=== PATIENT | male | born 1985 | race Caucasian/White ===

== ENCOUNTER 2022-03-07 09:11 | Emergency (ER) | payer MEDICAID ==
[~2022-03-07 09:11] MED LIST: FOLI1TAB27 PO; GABA-532 PO; LORA-269 PO; MULT-1179 PO; OMEP40CA21 PO; ONDA4TAB12 PO; ONDA4TAB6 PO; PANT20TA2 PO; THI100T PO
== END 2022-03-07 10:07 | disposition left against medical advice (07) ==
LOC: ER 09:12
DX: Z53.21 Procedure and treatment not carried out due to patient leaving prior to being seen by health care provider

== ENCOUNTER 2022-07-05 08:50 | Emergency (ER) | payer MEDICAID ==
[~2022-07-05] VITALS: Ht 182.9 cm; Wt 81.8 kg
[2022-07-05] MEDS ORDERED: normal saline 1000ML IV soln IVB ONE ×2 (10:50→11:30)
[2022-07-05] MEDS ORDERED: ondansetron/PF 4mg/2ml inj IV ONE (10:50)
[2022-07-05] MEDS ORDERED: LORazepam 2 mg/ml vial IV ONE (10:50)
[2022-07-05 11:01] LABS: BASOPHILS % (AUTO) 0.3 % (0-1); EOSINOPHILS % (AUTO) 0.3 % (0-6); HEMATOCRIT 43.1 % (42.0-52.0); HEMOGLOBIN 14.8 g/dl (14.0-17.9); LYMPHOCYTES # (AUTO) 0.6 X10'3 (1.1-4.8); LYMPHOCYTES % (AUTO) 9.2 % (21-51); MEAN CORPUSCULAR HEMOGLOBIN 34.5 PG (27.0-31.0); MEAN CORPUSCULAR HGB CONC 34.3 g/dL (33.0-36.5); MEAN CORPUSCULAR VOLUME 100.5 FL (78-98); MEAN PLATELET VOLUME 7.9 FL (7.4-10.4); MONOCYTES # (AUTO) 0.7 X10'3 (0-0.9); MONOCYTES % (AUTO) 10.8 % (2-12); NEUTROPHILS # (AUTO) 5.1 X10'3 (1.8-7.7); NEUTROPHILS % (AUTO) 79.4 % (42-75); PLATELET COUNT 84 X10'3 (140-440); RED BLOOD COUNT 4.29 X10'6 (4.70-6.10); RED CELL DISTRIBUTION WIDTH 13.9 % (11.5-14.5); WHITE BLOOD COUNT 6.5 X10'3 (4.5-11.0)
[2022-07-05 11:15] LABS: ALANINE AMINOTRANSFERASE 395 U/L (12-78); ALBUMIN 4.9 G/DL (3.4-5.0); ALBUMIN/GLOBULIN RATIO 1.3 (1.1-1.5); ALKALINE PHOSPHATASE 154 IU/L (46-116); ANION GAP 17 (8-16); ASPARTATE AMINO TRANSFERASE 343 U/L (10-37); BILIRUBIN,TOTAL 1.3 MG/DL (0.1-1.0); BLOOD UREA NITROGEN 12 MG/DL (7-18); BUN/CREATININE RATIO 18.2 (5.4-32.0); CALCIUM 10.6 MG/DL (8.5-10.1); CHLORIDE 91 MMOL/L (99-107); CREATININE 0.66 MG/DL (0.60-1.10); GLUCOSE 125 MG/DL (70-104); MAGNESIUM 1.6 MG/DL (1.5-2.4); POTASSIUM 3.6 MMOL/L (3.5-5.1); SODIUM 136 MMOL/L (135-145); TOTAL CARBON DIOXIDE 27.9 MMOL/L (24-32); TOTAL PROTEIN 8.7 G/DL (6.4-8.2); eGFR > 90 ML/MIN
[2022-07-05 11:46] VITALS: BP 134/86
[2022-07-05] MEDS ORDERED: ONDA-103 PO (12:23)
[2022-07-05] MEDS ORDERED: GABA300C PO (12:23)
== END 2022-07-05 13:49 | disposition home or self-care (01) ==
LOC: ER 08:51
DX: F10.10 Alcohol abuse, uncomplicated (principal); R11.2 Nausea with vomiting, unspecified; R74.8 Abnormal levels of other serum enzymes; F41.9 Anxiety disorder, unspecified; F32.9 Major depressive disorder, single episode, unspecified; F12.90 Cannabis use, unspecified, uncomplicated; Z90.49 Acquired absence of other specified parts of digestive tract; Z72.89 Other problems related to lifestyle; Z79.899 Other long term (current) drug therapy; Y90.9 Presence of alcohol in blood, level not specified
CPT/HCPCS: 80053; 83735; 85025; 96361; 96374; 96375; 99284; J2060; J2405; J7030

== ENCOUNTER 2022-09-09 07:12 | Inpatient (IN) | payer MEDICAID ==
[~2022-09-09] VITALS: Ht 182.9 cm; Wt 81.8 kg
[~2022-09-09 07:12] MED LIST changes: +GABA300C PO; +ONDA-103 PO
[2022-09-09] MEDS ORDERED: normal saline 1000ml 1,000 ML IV ONE (07:30)
[2022-09-09] MEDS ORDERED: ondansetron/PF 4mg/2ml inj IV ONE (07:30)
[2022-09-09] MEDS ORDERED: pantoprazole 40mg IV 40 MG in normal saline 100ml IV soln 100 ML IV ONE (07:30)
[2022-09-09] MEDS ORDERED: pantoprazole 40MG/NS 100ML BAG 100 ML IV ONE (07:45)
[2022-09-09] MEDS ORDERED: multivitamins, therapeutics tablet PO SCH (08:00)
[2022-09-09] MEDS: LORazepam 2 mg/ml vial IV PRN ×7 (08:08→21:00)
[2022-09-09] MEDS: thiamine 100mg/ml 2ml inj. IV SCH ×3 (08:24→20:59)
--- NOTE | 2022-09-09 08:30 | NUR ---
Patient sleepy, no tremors seen since the Ativan IV was given.
[2022-09-09 10:02] LABS: LIPASE 278 U/L (73-393)
[2022-09-09] MEDS: folic acid 1mg/0.2ml inj IV SCH (10:16)
[2022-09-09 10:25] LABS: ALANINE AMINOTRANSFERASE 206 U/L (12-78); ALBUMIN 3.8 G/DL (3.4-5.0); ALBUMIN/GLOBULIN RATIO 1.1 (1.1-1.5); ALKALINE PHOSPHATASE 191 IU/L (46-116); ANION GAP 15 (8-16); BILIRUBIN,TOTAL 0.5 MG/DL (0.1-1.0); BLOOD UREA NITROGEN 6 MG/DL (7-18); BUN/CREATININE RATIO 14.3 (10.0-20.0); CALCIUM 8.5 MG/DL (8.5-10.1); CHLORIDE 103 MMOL/L (99-107); CREATININE 0.42 MG/DL (0.60-1.10); GLUCOSE 118 MG/DL (70-104); SODIUM 140 MMOL/L (135-145); TOTAL CARBON DIOXIDE 21.8 MMOL/L (24-32); TOTAL PROTEIN 7.4 G/DL (6.4-8.2); eGFR > 90 ML/MIN
[2022-09-09 10:32] LABS: ASPARTATE AMINO TRANSFERASE 235 U/L (10-37); PHOSPHORUS 2.2 MG/DL (2.3-4.5); POTASSIUM 3.9 MMOL/L (3.5-5.1)
[2022-09-09] MEDS ORDERED: buprenorphine/naloxone 8MG-2MG SUBlingual film SL STA (10:34)
[2022-09-09] MEDS ORDERED: multivitamins, therapeutics tablet PO ONE (10:45)
[2022-09-09 11:17] LABS: BASOPHILS % (AUTO) 0.6 % (0-1); EOSINOPHILS # (AUTO) 0.1 X10'3 (0-0.9); HEMATOCRIT 39.9 % (42.0-52.0); HEMOGLOBIN 13.5 g/dl (14.0-17.9); LYMPHOCYTES # (AUTO) 0.7 X10'3 (1.1-4.8); LYMPHOCYTES % (AUTO) 18.1 % (21-51); MEAN CORPUSCULAR HGB CONC 33.7 g/dL (33.0-36.5); MEAN CORPUSCULAR VOLUME 100.9 FL (78-98); MONOCYTES # (AUTO) 0.6 X10'3 (0-0.9); MONOCYTES % (AUTO) 14.5 % (2-12); NEUTROPHILS # (AUTO) 2.6 X10'3 (1.8-7.7); NEUTROPHILS % (AUTO) 64.8 % (42-75); PLATELET COUNT 102 X10'3 (140-440); RED BLOOD COUNT 3.96 X10'6 (4.70-6.10); RED CELL DISTRIBUTION WIDTH 14.2 % (11.5-14.5)
--- NOTE | 2022-09-09 12:42 | NUR ---
MD STEWART AT BEDSIDE
[2022-09-09] MEDS ORDERED: potassium Cl 40MEQ/1/2NS 520ml 520 ML IV PRN (12:50)
[2022-09-09] MEDS ORDERED: magnesium Cl slow-release 64mg tablet PO PRN (12:50)
[2022-09-09] MEDS: normal saline 1000ml 1,000 ML IV SCH ×2 (12:50→22:50)
[2022-09-09] MEDS ORDERED: magnesium 2GM in 50ml NS 50 ML IV PRN (12:50)
[2022-09-09] MEDS ORDERED: acetaminophen 325mg tablet PO PRN (12:50)
[2022-09-09] MEDS ORDERED: magnesium 4gm in 100ml NS 100 ML IV PRN (12:50)
[2022-09-09] MEDS ORDERED: potassium Cl 20 mEq SR tablet PO PRN (12:50)
[2022-09-09] MEDS ORDERED: FOLI1TAB27 PO (14:32)
[2022-09-09] MEDS ORDERED: DULO60CA65 PO (14:32)
[2022-09-09] MEDS ORDERED: BUPR1FIL20 PO (14:32)
--- NOTE | 2022-09-09 15:25 | NUR ---
Current peripheral IV got occluded, multiple IV insertion attempts. Pt need Ativan as soon as a new peripheral IV placed.
--- NOTE | 2022-09-09 15:57 | NUR ---
Patient arrived to unit via gurney. Received report from Bharath TYSON.
[2022-09-09 16:07] VITALS: BP 146/94
--- NOTE | 2022-09-09 17:21 | NUR ---
PAGER ID: [phone] MESSAGE: [phone] Daniel Complaining of 8/10 back pain. he doesn't have anything for pain. Thank you Romina HUERTA [phone]
--- NOTE | 2022-09-09 18:16 | NUR ---
Problems reprioritized. Patient report given, questions answered & plan of care reviewed with Sherri TYSON.
--- NOTE | 2022-09-09 18:30 | NUR ---
Reviewed and agree with assessments done by Romina HUERTA.
[2022-09-09] MEDS: K and/or MAG REPLACEMENT MC SCH (20:00)
[2022-09-09 20:04] LABS: CLARITY,URINE CLEAR (Clear); COLOR,URINE YELLOW (Yellow); GLUCOSE, URINE NEGATIVE (Neg); KETONES,URINE 15 mg/dl (Neg); LEUKOCYTE ESTERASE ,URINE NEGATIVE (Neg); NITRITES, URINE NEGATIVE (Neg); OCCULT BLOOD,URINE NEGATIVE (Neg); PROTEIN,URINE NEGATIVE (Neg); UROBILINOGEN,URINE 0.2 E.U/dL (0.2-1.0)
[2022-09-09 20:06] LABS: UA COLLECTION TYPE NON-SPECIFIED
[2022-09-09 20:28] LABS: URINE AMPHETAMINE SCREEN NEGATIVE (Neg); URINE BARBITUATE SCREEN NEGATIVE (Neg); URINE BENZODIAZEPINES SCREEN NEGATIVE (Neg); URINE CANNABINOID SCREEN NEGATIVE (Neg); URINE COCAINE SCREEN NEGATIVE (Neg); URINE METHADONE SCREEN NEGATIVE (Neg); URINE OPIATE SCREEN NEGATIVE (Neg); URINE PHENCYCLIDINE SCREEN NEGATIVE (Neg)
[2022-09-09] MEDS: buprenorphine/naloxone 8MG-2MG SUBlingual film SL SCH (21:02)
[2022-09-09 22:00] VITALS: BP 145/101
[2022-09-10] MEDS: LORazepam 2 mg/ml vial IV PRN ×7 (01:42→23:19)
[2022-09-10 02:00] VITALS: BP 145/99
[2022-09-10] MEDS: normal saline 1000ml 1,000 ML IV SCH ×2 (05:16→18:50)
--- NOTE | 2022-09-10 06:09 | NUR ---
Problems reprioritized. Patient report given, questions answered & plan of care reviewed with CHARITY RN.
[2022-09-10 07:00] VITALS: BP 141/99
[2022-09-10 07:37] LABS: BASOPHILS % (AUTO) 0.7 % (0-1); EOSINOPHILS # (AUTO) 0.1 X10'3 (0-0.9); EOSINOPHILS % (AUTO) 3.4 % (0-6); HEMOGLOBIN 13.5 g/dl (14.0-17.9); LYMPHOCYTES # (AUTO) 0.9 X10'3 (1.1-4.8); LYMPHOCYTES % (AUTO) 20.8 % (21-51); MEAN CORPUSCULAR HEMOGLOBIN 34.5 PG (27.0-31.0); MEAN CORPUSCULAR HGB CONC 34.6 g/dL (33.0-36.5); MEAN CORPUSCULAR VOLUME 99.8 FL (78-98); MONOCYTES # (AUTO) 0.6 X10'3 (0-0.9); MONOCYTES % (AUTO) 13.3 % (2-12); NEUTROPHILS # (AUTO) 2.6 X10'3 (1.8-7.7); NEUTROPHILS % (AUTO) 61.8 % (42-75); PLATELET COUNT 92 X10'3 (140-440); RED BLOOD COUNT 3.91 X10'6 (4.70-6.10); RED CELL DISTRIBUTION WIDTH 13.9 % (11.5-14.5); WHITE BLOOD COUNT 4.2 X10'3 (4.5-11.0)
[2022-09-10 07:51] LABS: ALANINE AMINOTRANSFERASE 174 U/L (12-78); ALBUMIN 3.8 G/DL (3.4-5.0); ALKALINE PHOSPHATASE 162 IU/L (46-116); AMYLASE 61 U/L (25-115); ANION GAP 11 (8-16); ASPARTATE AMINO TRANSFERASE 158 U/L (10-37); BILIRUBIN,TOTAL 0.9 MG/DL (0.1-1.0); BLOOD UREA NITROGEN 5 MG/DL (7-18); BUN/CREATININE RATIO 10.9 (10.0-20.0); CALCIUM 9.4 MG/DL (8.5-10.1); CHLORIDE 101 MMOL/L (99-107); CREATININE 0.46 MG/DL (0.60-1.10); GLUCOSE 111 MG/DL (70-104); LIPASE 574 U/L (73-393); MAGNESIUM 1.5 MG/DL (1.5-2.4); PHOSPHORUS 3.3 MG/DL (2.3-4.5); POTASSIUM 3.4 MMOL/L (3.5-5.1); SODIUM 137 MMOL/L (135-145); TOTAL CARBON DIOXIDE 24.7 MMOL/L (24-32); TOTAL PROTEIN 7.5 G/DL (6.4-8.2); eGFR > 90 ML/MIN
[2022-09-10] MEDS: K and/or MAG REPLACEMENT MC SCH ×2 (08:00→19:57)
[2022-09-10] MEDS: folic acid 1mg/0.2ml inj IV SCH (08:18)
[2022-09-10] MEDS: thiamine 100mg/ml 2ml inj. IV SCH ×3 (08:19→21:13)
[2022-09-10] MEDS: duloxetine 30mg CAPSULE.DR PO SCH (08:21)
[2022-09-10] MEDS: potassium Cl 20 mEq SR tablet PO PRN ×3 (08:21→15:47)
[2022-09-10] MEDS: buprenorphine/naloxone 8MG-2MG SUBlingual film SL SCH ×2 (08:22→19:55)
--- NOTE | 2022-09-10 10:25 | NUR ---
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
[2022-09-10 11:00] VITALS: BP 141/99
--- NOTE | 2022-09-10 13:35 | NUR ---
Malnutrition consult: Pt reports 2-13 lb wt loss with decreased appetite per malnutrition risk screen with RN. Attempted visit with pt at bedside however pt sleeping. During brief visit no visible fat or muscle wasting was appreciated. Pt with documented wt h/o 81.82 kg 07/05/22 though no documentation of how wt was obtained, current scaled wt is 81.82 kg. Pt on a regular diet and eating poorly, documented with average 31% PO intake of first two meals, possibly r/t EtOH w/d. IF PO intake does not improve pt would benefit from ONS to assist with meeting estimated nutrient needs. Pt with no documented significant decrease in muscle strength or edema. Pt currently lacks a minimum of two criteria for malnutrition though at a high risk in view of EtOH hx. Will continue to follow and further monitor qualifying malnutrition criteria. Addendum: 09/10/22 at [address] Amended: Links added.
--- NOTE | 2022-09-10 13:45 | NUR ---
i HAVE REVIEWED AND AGREE WITH ASSESSMENTS BY CHARITY HUERTA
[2022-09-10 15:00] VITALS: BP 154/111
--- NOTE | 2022-09-10 16:31 | NUR ---
Page sent to at approx [phone] [id number], Lamar Sanchez, requesting nicotine patch, please advise. Genia Whiting @[phone].
[2022-09-10 18:00] VITALS: BP 151/97
[2022-09-10 22:00] VITALS: BP 149/96
[2022-09-11] MEDS: LORazepam 2 mg/ml vial IV PRN ×3 (01:58→06:53)
[2022-09-11 02:00] VITALS: BP 151/96
[2022-09-11] MEDS: normal saline 1000ml 1,000 ML IV SCH ×3 (03:34→21:15)
[2022-09-11 06:00] VITALS: BP 149/102
--- NOTE | 2022-09-11 06:15 | NUR ---
Patient in room PCU 3008. I have received report from Luzmaria TYSON and had the opportunity to ask questions and assume patient care. Pt sleeping, No distress. Call light in reach. Addendum: 09/11/22 at 0703 by Leslye Jamil RN Amended: Links added.
--- NOTE | 2022-09-11 06:32 | NUR ---
Problems reprioritized. Patient report given, questions answered & plan of care reviewed with Hanny TYSON.
[2022-09-11] MEDS: pantoprazole 40mg Tablet.DR PO SCH (06:53)
[2022-09-11] MEDS: thiamine 100mg/ml 2ml inj. IV SCH ×3 (07:29→20:21)
[2022-09-11] MEDS: duloxetine 30mg CAPSULE.DR PO SCH (07:29)
[2022-09-11] MEDS: buprenorphine/naloxone 8MG-2MG SUBlingual film SL SCH ×2 (07:29→19:33)
[2022-09-11 07:45] LABS: BASOPHILS % (AUTO) 0.5 % (0-1); EOSINOPHILS # (AUTO) 0.2 X10'3 (0-0.9); EOSINOPHILS % (AUTO) 4.5 % (0-6); HEMATOCRIT 38.5 % (42.0-52.0); HEMOGLOBIN 13.3 g/dl (14.0-17.9); LYMPHOCYTES # (AUTO) 1.1 X10'3 (1.1-4.8); LYMPHOCYTES % (AUTO) 21.8 % (21-51); MEAN CORPUSCULAR HEMOGLOBIN 34.4 PG (27.0-31.0); MEAN CORPUSCULAR HGB CONC 34.5 g/dL (33.0-36.5); MEAN CORPUSCULAR VOLUME 99.8 FL (78-98); MEAN PLATELET VOLUME 8.4 FL (7.4-10.4); MONOCYTES # (AUTO) 0.6 X10'3 (0-0.9); MONOCYTES % (AUTO) 11.9 % (2-12); NEUTROPHILS % (AUTO) 61.3 % (42-75); PLATELET COUNT 114 X10'3 (140-440); RED BLOOD COUNT 3.86 X10'6 (4.70-6.10); RED CELL DISTRIBUTION WIDTH 13.7 % (11.5-14.5); WHITE BLOOD COUNT 4.9 X10'3 (4.5-11.0)
[2022-09-11] MEDS: K and/or MAG REPLACEMENT MC SCH ×2 (08:00→19:06)
--- NOTE | 2022-09-11 08:18 | NUR ---
PAGER ID: [phone] MESSAGE: [phone] Pt on ETOH protocol meds ? Ativan has dropped off eMAR. #[id number] Leslye
[2022-09-11 08:52] LABS: ALANINE AMINOTRANSFERASE 156 U/L (12-78); ALBUMIN 3.8 G/DL (3.4-5.0); ALKALINE PHOSPHATASE 153 IU/L (46-116); AMYLASE 70 U/L (25-115); ANION GAP 13 (8-16); ASPARTATE AMINO TRANSFERASE 116 U/L (10-37); BILIRUBIN,TOTAL 0.8 MG/DL (0.1-1.0); BLOOD UREA NITROGEN 7 MG/DL (7-18); BUN/CREATININE RATIO 15.9 (10.0-20.0); CALCIUM 10.1 MG/DL (8.5-10.1); CHLORIDE 101 MMOL/L (99-107); CREATININE 0.44 MG/DL (0.60-1.10); GLUCOSE 99 MG/DL (70-104); MAGNESIUM 1.5 MG/DL (1.5-2.4); PHOSPHORUS 4.7 MG/DL (2.3-4.5); POTASSIUM 4.1 MMOL/L (3.5-5.1); SODIUM 136 MMOL/L (135-145); TOTAL CARBON DIOXIDE 22.5 MMOL/L (24-32); TOTAL PROTEIN 7.7 G/DL (6.4-8.2); eGFR > 90 ML/MIN
--- NOTE | 2022-09-11 08:58 | NUR ---
PAGER ID: [phone] MESSAGE: [phone] Daniel. Pt is having tremors. He is requesting Ativan. I do not have an order. Leslye #[phone]
[2022-09-11] MEDS ORDERED: haloperidol 5mg tablet PO PRN (09:00)
[2022-09-11] MEDS ORDERED: LORazepam 2 mg/ml vial IV PRN (09:00)
[2022-09-11] MEDS: LORazepam 1 MG tablet PO PRN ×5 (09:28→22:39)
[2022-09-11] MEDS: folic acid 1mg/0.2ml inj IV SCH (09:28)
[2022-09-11 11:27] VITALS: BP 143/106
[2022-09-11] MEDS: chlordiazePOXIDE 25mg capsule PO PRN (14:27)
[2022-09-11] MEDS: ondansetron/PF 4mg/2ml inj IV PRN (14:29)
[2022-09-11 14:40] VITALS: BP 141/107
--- NOTE | 2022-09-11 18:11 | NUR ---
Problems reprioritized. Patient report given, questions answered & plan of care reviewed with Stephen TYSON. Pt eating dinner. Call light in reach. Addendum: 09/11/22 at 1812 by Leslye Jamil RN Amended: Links added.
[2022-09-11 19:32] VITALS: BP 149/90
[2022-09-11 22:35] VITALS: BP 151/93
[2022-09-12 03:00] VITALS: BP 145/105
[2022-09-12] MEDS: LORazepam 1 MG tablet PO PRN ×7 (03:57→22:25)
[2022-09-12] MEDS: chlordiazePOXIDE 25mg capsule PO PRN ×4 (03:57→22:25)
[2022-09-12 06:00] VITALS: BP 145/102
--- NOTE | 2022-09-12 06:15 | NUR ---
Patient in room PCU 3008. I have received report from Stephen TYSON and had the opportunity to ask questions and assume patient care. Pt resting, no distress. Call light in reach. Addendum: 09/12/22 at 0616 by Leslye Jamil RN Amended: Links added.
[2022-09-12 06:59] LABS: BASOPHILS % (AUTO) 0.7 % (0-1); EOSINOPHILS # (AUTO) 0.2 X10'3 (0-0.9); EOSINOPHILS % (AUTO) 3.4 % (0-6); HEMATOCRIT 37.4 % (42.0-52.0); LYMPHOCYTES # (AUTO) 1.2 X10'3 (1.1-4.8); LYMPHOCYTES % (AUTO) 19.8 % (21-51); MEAN CORPUSCULAR HEMOGLOBIN 34.5 PG (27.0-31.0); MEAN CORPUSCULAR HGB CONC 34.6 g/dL (33.0-36.5); MEAN CORPUSCULAR VOLUME 99.6 FL (78-98); MEAN PLATELET VOLUME 8.2 FL (7.4-10.4); MONOCYTES # (AUTO) 0.7 X10'3 (0-0.9); MONOCYTES % (AUTO) 11.5 % (2-12); NEUTROPHILS # (AUTO) 3.8 X10'3 (1.8-7.7); NEUTROPHILS % (AUTO) 64.6 % (42-75); PLATELET COUNT 129 X10'3 (140-440); RED BLOOD COUNT 3.76 X10'6 (4.70-6.10); RED CELL DISTRIBUTION WIDTH 13.8 % (11.5-14.5); WHITE BLOOD COUNT 5.8 X10'3 (4.5-11.0)
[2022-09-12 07:17] LABS: ALANINE AMINOTRANSFERASE 138 U/L (12-78); ALBUMIN 3.8 G/DL (3.4-5.0); ALKALINE PHOSPHATASE 146 IU/L (46-116); AMYLASE 54 U/L (25-115); ANION GAP 12 (8-16); ASPARTATE AMINO TRANSFERASE 102 U/L (10-37); BILIRUBIN,TOTAL 0.7 MG/DL (0.1-1.0); BLOOD UREA NITROGEN 9 MG/DL (7-18); BUN/CREATININE RATIO 19.6 (10.0-20.0); CALCIUM 9.7 MG/DL (8.5-10.1); CHLORIDE 99 MMOL/L (99-107); CREATININE 0.46 MG/DL (0.60-1.10); GLUCOSE 100 MG/DL (70-104); MAGNESIUM 1.6 MG/DL (1.5-2.4); PHOSPHORUS 4.6 MG/DL (2.3-4.5); SODIUM 135 MMOL/L (135-145); TOTAL CARBON DIOXIDE 23.6 MMOL/L (24-32); TOTAL PROTEIN 7.6 G/DL (6.4-8.2); eGFR > 90 ML/MIN
[2022-09-12] MEDS: duloxetine 30mg CAPSULE.DR PO SCH (07:25)
[2022-09-12] MEDS: normal saline 1000ml 1,000 ML IV SCH ×2 (07:25→16:53)
[2022-09-12] MEDS: pantoprazole 40mg Tablet.DR PO SCH (07:26)
[2022-09-12] MEDS: buprenorphine/naloxone 8MG-2MG SUBlingual film SL SCH ×2 (07:26→19:09)
[2022-09-12] MEDS: K and/or MAG REPLACEMENT MC SCH ×2 (08:00→19:07)
[2022-09-12] MEDS: ondansetron/PF 4mg/2ml inj IV PRN (09:05)
[2022-09-12 10:53] VITALS: BP 128/97
[2022-09-12] MEDS ORDERED: magnesium hydroxide 30ml (MOM) UD suspension PO ONE (14:50)
[2022-09-12 15:01] VITALS: BP 138/96
--- NOTE | 2022-09-12 17:58 | NUR ---
Problems reprioritized. Patient report given, questions answered & plan of care reviewed with Stephen TYSON. Pt playing on tablet,watching TV and eating dinner. Addendum: 09/12/22 at 1807 by Leslye Jamil RN Amended: Links added.
[2022-09-12 18:55] VITALS: BP 157/88
[2022-09-12 23:00] VITALS: BP 139/91
[2022-09-13] MEDS: LORazepam 1 MG tablet PO PRN ×7 (01:19→23:52)
[2022-09-13] MEDS: normal saline 1000ml 1,000 ML IV SCH ×3 (01:23→23:03)
[2022-09-13 01:46] VITALS: BP 128/91
[2022-09-13] MEDS: chlordiazePOXIDE 25mg capsule PO PRN ×3 (04:59→19:58)
--- NOTE | 2022-09-13 06:15 | NUR ---
Patient in room PCU 3008. I have received report from Stephen TYSON and had the opportunity to ask questions and assume patient care.RN informed me of pt paranoid behavior last noc. This behavior included needing the disabled camera in the room to be covered with tape. I interviewed my pt. He stated "I think i've been taking too much of my Suboxone". He then dumped out his little mini back pac and 7 opened envelopes and one intact of Suboxone fell out. Pt stated " I was taking 2 extra a day between what you were giving me". Pt VS WNL. Will notify Dr Lindsay and continue to monitor. Addendum: 09/13/22 at 0657 by Leslye Jamil RN Amended: Links added.
[2022-09-13 06:30] VITALS: BP 149/102
--- NOTE | 2022-09-13 07:03 | NUR ---
PAGER ID: [phone] MESSAGE: [phone] Daniel. Please call Leslye PEACE. Thank you.
[2022-09-13 07:10] LABS: BASOPHILS % (AUTO) 0.6 % (0-1); EOSINOPHILS # (AUTO) 0.2 X10'3 (0-0.9); EOSINOPHILS % (AUTO) 3.8 % (0-6); HEMATOCRIT 35.8 % (42.0-52.0); HEMOGLOBIN 12.5 g/dl (14.0-17.9); LYMPHOCYTES # (AUTO) 1.2 X10'3 (1.1-4.8); LYMPHOCYTES % (AUTO) 20.2 % (21-51); MEAN CORPUSCULAR HEMOGLOBIN 34.9 PG (27.0-31.0); MEAN CORPUSCULAR VOLUME 99.8 FL (78-98); MEAN PLATELET VOLUME 7.9 FL (7.4-10.4); MONOCYTES # (AUTO) 0.7 X10'3 (0-0.9); MONOCYTES % (AUTO) 11.9 % (2-12); NEUTROPHILS # (AUTO) 3.9 X10'3 (1.8-7.7); NEUTROPHILS % (AUTO) 63.5 % (42-75); PLATELET COUNT 147 X10'3 (140-440); RED BLOOD COUNT 3.59 X10'6 (4.70-6.10); RED CELL DISTRIBUTION WIDTH 13.5 % (11.5-14.5); WHITE BLOOD COUNT 6.2 X10'3 (4.5-11.0)
[2022-09-13 07:38] LABS: ALANINE AMINOTRANSFERASE 173 U/L (12-78); ALBUMIN 3.8 G/DL (3.4-5.0); ALKALINE PHOSPHATASE 134 IU/L (46-116); AMYLASE 35 U/L (25-115); ANION GAP 13 (8-16); ASPARTATE AMINO TRANSFERASE 143 U/L (10-37); BILIRUBIN,TOTAL 0.8 MG/DL (0.1-1.0); BLOOD UREA NITROGEN 10 MG/DL (7-18); BUN/CREATININE RATIO 18.9 (10.0-20.0); CALCIUM 9.4 MG/DL (8.5-10.1); CHLORIDE 101 MMOL/L (99-107); CREATININE 0.53 MG/DL (0.60-1.10); GLUCOSE 88 MG/DL (70-104); MAGNESIUM 1.7 MG/DL (1.5-2.4); PHOSPHORUS 4.3 MG/DL (2.3-4.5); POTASSIUM 3.9 MMOL/L (3.5-5.1); SODIUM 138 MMOL/L (135-145); TOTAL CARBON DIOXIDE 23.8 MMOL/L (24-32); TOTAL PROTEIN 7.5 G/DL (6.4-8.2); eGFR > 90 ML/MIN
[2022-09-13] MEDS: K and/or MAG REPLACEMENT MC SCH ×2 (08:00→19:49)
[2022-09-13] MEDS: buprenorphine/naloxone 8MG-2MG SUBlingual film SL SCH ×2 (08:00→19:45)
--- NOTE | 2022-09-13 08:30 | NUR ---
PAGER ID: [phone] MESSAGE: [phone] Daniel. Please call francois LANCASTER #[phone]. I need direction on med pass as Pt was taking his own Saboxone. Francois LANCASTER
[2022-09-13] MEDS: pantoprazole 40mg Tablet.DR PO SCH (08:39)
[2022-09-13] MEDS: folic acid 1mg tablet PO SCH (08:39)
[2022-09-13] MEDS: duloxetine 30mg CAPSULE.DR PO SCH (08:39)
[2022-09-13 11:00] VITALS: BP 127/87
[2022-09-13 14:46] VITALS: BP 132/85
--- NOTE | 2022-09-13 14:46 | NUR ---
poison control called back. Info exchanged. Poison control closed his case. Pt relaxing. scant tremors noted.
--- NOTE | 2022-09-13 16:57 | NUR ---
Patient report given, questions answered & plan of care reviewed with Birdie TYSON.
[2022-09-13 17:00] VITALS: BP 156/87
--- NOTE | 2022-09-13 17:26 | NUR ---
Pt and all belongings in room moved to 4021b.
--- NOTE | 2022-09-13 17:50 | NUR ---
Received pt from PCU. Pt A&Ox4, on room air, denies pain. Oriented pt to room and call light.
--- NOTE | 2022-09-13 18:08 | NUR ---
Problems reprioritized. Patient report given, questions answered & plan of care reviewed with
[2022-09-13 22:00] VITALS: BP 155/95
[2022-09-14 02:00] VITALS: BP 148/93
[2022-09-14] MEDS: LORazepam 1 MG tablet PO PRN ×2 (02:59→05:35)
--- NOTE | 2022-09-14 06:00 | NUR ---
Patient in room ORTHO 4021. I have received report from Kimberly TYSON and had the opportunity to ask questions and assume patient care.
[2022-09-14 06:17] LABS: BASOPHILS % (AUTO) 0.6 % (0-1); EOSINOPHILS # (AUTO) 0.2 X10'3 (0-0.9); EOSINOPHILS % (AUTO) 4.2 % (0-6); HEMATOCRIT 42.6 % (42.0-52.0); HEMOGLOBIN 14.7 g/dl (14.0-17.9); LYMPHOCYTES # (AUTO) 1.5 X10'3 (1.1-4.8); LYMPHOCYTES % (AUTO) 28.9 % (21-51); MEAN CORPUSCULAR HEMOGLOBIN 34.7 PG (27.0-31.0); MEAN CORPUSCULAR HGB CONC 34.5 g/dL (33.0-36.5); MEAN CORPUSCULAR VOLUME 100.4 FL (78-98); MEAN PLATELET VOLUME 7.8 FL (7.4-10.4); MONOCYTES # (AUTO) 0.7 X10'3 (0-0.9); MONOCYTES % (AUTO) 13.6 % (2-12); NEUTROPHILS # (AUTO) 2.7 X10'3 (1.8-7.7); NEUTROPHILS % (AUTO) 52.7 % (42-75); PLATELET COUNT 179 X10'3 (140-440); RED BLOOD COUNT 4.24 X10'6 (4.70-6.10); RED CELL DISTRIBUTION WIDTH 14.1 % (11.5-14.5); WHITE BLOOD COUNT 5.1 X10'3 (4.5-11.0)
[2022-09-14 06:20] LABS: ALANINE AMINOTRANSFERASE 235 U/L (12-78); ALBUMIN 4.4 G/DL (3.4-5.0); ALBUMIN/GLOBULIN RATIO 1.1 (1.1-1.5); ALKALINE PHOSPHATASE 159 IU/L (46-116); AMYLASE 33 U/L (25-115); ANION GAP 13 (8-16); ASPARTATE AMINO TRANSFERASE 169 U/L (10-37); BILIRUBIN,TOTAL 0.7 MG/DL (0.1-1.0); BLOOD UREA NITROGEN 9 MG/DL (7-18); BUN/CREATININE RATIO 16.7 (10.0-20.0); CALCIUM 9.5 MG/DL (8.5-10.1); CHLORIDE 103 MMOL/L (99-107); CREATININE 0.54 MG/DL (0.60-1.10); GLUCOSE 112 MG/DL (70-104); MAGNESIUM 2.1 MG/DL (1.5-2.4); PHOSPHORUS 4.4 MG/DL (2.3-4.5); POTASSIUM 3.9 MMOL/L (3.5-5.1); SODIUM 141 MMOL/L (135-145); TOTAL CARBON DIOXIDE 25.5 MMOL/L (24-32); TOTAL PROTEIN 8.3 G/DL (6.4-8.2); eGFR > 90 ML/MIN
--- NOTE | 2022-09-14 06:23 | NUR ---
Problems reprioritized. Patient report given, questions answered & plan of care reviewed with Claudette TYSON. Addendum: 09/14/22 at 0625 by Kimberly Miller RN Problems reprioritized. Patient report given, questions answered & plan of care reviewed with Maribel TYSON.
[2022-09-14 06:37] VITALS: BP 121/67
[2022-09-14] MEDS: K and/or MAG REPLACEMENT MC SCH (07:30)
[2022-09-14] MEDS: pantoprazole 40mg Tablet.DR PO SCH (07:44)
[2022-09-14] MEDS: folic acid 1mg tablet PO SCH (07:44)
[2022-09-14] MEDS: duloxetine 30mg CAPSULE.DR PO SCH (07:44)
[2022-09-14] MEDS: buprenorphine/naloxone 8MG-2MG SUBlingual film SL SCH (07:45)
[2022-09-14] MEDS: normal saline 1000ml 1,000 ML IV SCH (08:45)
--- NOTE | 2022-09-14 09:49 | NUR ---
promotional table spacer promotional table spacer Page Sent promotional table spacer PAGER ID: [phone] MESSAGE: Henrry Sanchez [phone] [id number] Pt states he is very anxious and would like Ativan. Pt was taking Ativan 2mg Q4hrs PRN, this was Discontinued. Can pt have Ativan? Maribel [phone]
[2022-09-14] MEDS ORDERED: LORazepam 1 MG tablet PO PRN (09:50)
[2022-09-14 10:06] VITALS: BP 135/96
--- NOTE | 2022-09-14 10:38 | NUR ---
Initial: Pt admit for EtOH withdrawal/DTs and gastritis. Currently on a regular diet with improving PO intake, initially averaging 42% PO intake of first nine meals however up to average 88% the three most recent meals. Pt will meet estimated nutrient needs if he's with average 82% PO intake of meals. Noted pt now just receiving Folic acid as MVI and Thiamine were discontinued for unknown reason. Physician paged with recommendation to resume routine Thiamine and MVI given EtOH intake with elevated MCV. LBM 09/13. No nutrition intervention implemented in view of improved PO intake. Will continue to follow and make recommendations as appropriate. Recommendations: 1) Continue regular diet 2) Continue routine Folic acid; add routine MVI and Thiamine given EtOH hx with elevated MCV, physician paged 09/14 3) Bowel care PRN 4) Weekly scaled weights Addendum: 09/14/22 at [address] Amended: Links added.
[2022-09-14] MEDS ORDERED: thiamine 100mg/ml 2ml inj. IV ONE (13:00)
[2022-09-14 14:52] VITALS: BP 132/88
[2022-09-14] MEDS ORDERED: CHLO25CA10 PO (15:19)
[2022-09-15] MEDS ORDERED: multivitamins, therapeutics tablet PO SCH (08:00)
== END 2022-09-14 16:20 | disposition home or self-care (01) | DRG 58 ==
LOC: ER 07:12 → ED HOLD 12:52 → PCU 3S 15:58 → ORTHO 4S 09-13 17:21
PROVIDERS: ADMIT Internal Medicine; ATTEND Internal Medicine
DX: R25.1 Tremor, unspecified (principal); F10.231 Alcohol dependence with withdrawal delirium; E87.6 Hypokalemia; K29.70 Gastritis, unspecified, without bleeding; F41.9 Anxiety disorder, unspecified; F32.A Depression, unspecified; F17.210 Nicotine dependence, cigarettes, uncomplicated; Z82.49 Family history of ischemic heart disease and other diseases of the circulatory system; Z82.5 Family history of asthma and other chronic lower respiratory diseases; Z90.49 Acquired absence of other specified parts of digestive tract; Z79.899 Other long term (current) drug therapy
CPT/HCPCS: 36415; 76700; 80053; 80305; 80320; 81003; 82140; 82150; 82948; 83690; 83735; 84100; 85025; 85610; 87081; 97161; 97530; 99285; C9113; G0378; J2060; J2405; J3411; J3490; J7030